=== PATIENT | male | born 1995 | race Two or more races ===

== ENCOUNTER 2020-10-09 18:57 | Emergency (ER) | payer MEDICAID, OTHER ==
[~2020-10-09] VITALS: Ht 167.6 cm; Wt 77.1 kg
[2020-10-09 22:00] VITALS: BP 149/102
[2020-10-09] MEDS ORDERED: BACITRACIN TOP OINT 1 UD PKG TOP ONE (22:15)
[2020-10-09] MEDS ORDERED: TETANUS-DIPTH-ACEL PERTUSSIS 0.5ML SYR Tdap IM ONE (22:15)
== END 2020-10-09 23:33 | disposition home or self-care (01) ==
LOC: ER 18:58
DX: S61.211A Laceration without foreign body of left index finger without damage to nail, initial encounter (principal); W26.8XXA Contact with other sharp object(s), not elsewhere classified, initial encounter; Y93.89 Activity, other specified; Y92.89 Other specified places as the place of occurrence of the external cause; Y99.8 Other external cause status
CPT/HCPCS: 12002; 73130; 90471; 90715

== ENCOUNTER 2020-10-20 14:10 | Emergency (ER) | payer MEDICAID ==
[~2020-10-20] VITALS: Ht 167.6 cm; Wt 79.4 kg
[2020-10-20 16:17] VITALS: BP 146/97
== END 2020-10-20 16:15 | disposition home or self-care (01) ==
LOC: ER 14:10
DX: S61.211D Laceration without foreign body of left index finger without damage to nail, subsequent encounter (principal); X58.XXXD Exposure to other specified factors, subsequent encounter